=== PATIENT | female | born 2005 | race Two or more races ===

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

== ENCOUNTER 2024-12-24 08:04 | Outpatient (CLI) | payer OTHER | END 2024-12-24 08:14 | disposition home or self-care (01) | LOC: RAD 08:04 | PROVIDERS: ATTEND Orthopaedic Surgery | DX: M41.125 Adolescent idiopathic scoliosis, thoracolumbar region (principal) ==